=== PATIENT | female | born 1945 | race Caucasian/White ===

== ENCOUNTER 2021-01-05 11:30 | Emergency (ER) | payer MEDICARE, OTHER ==
--- NOTE | 2021-01-05 11:44 | EDM.PDOC ---
ED HPI GENERAL MEDICAL PROBLEM - General Chief Complaint: Upper Extremity Injury/Pain Stated Complaint: LEFT WRIST PAIN, S/P Fall Time Seen by Provider: 01/05/21 11:35 Source of Information: Reports: Patient History Limitations: Reports: No Limitations - History of Present Illness INITIAL COMMENTS - FREE TEXT/NARRATIVE: 75 YO WF PRESENTS TO ER AFTER TRIP AND FALL WHILE WALKING OUTSIDE. PT REPORTS SHE FELL ON AN OUTSTRETCHED HAND TRYING TO BRACE HER FALL. PT ALSO REPORTS LANDING ON HER RIGHT KNEE WHICH HAS BECOME SORE. PT REPORTS SHE'S BEEN ABLE TO AMBULATE WITHOUT DIFFICULTY. PT COMPLAINING OF LEFT WRIST PAIN AND DEFORMITY. PT DENIES ANY OTHER INJURIES- NO HEAD/NECK INJURY. PT DENIES ANY NEUROVASCULAR COMPLAINTS OF NUMBNESS OR MOTOR WEAKNESS. Onset: Today Location: Reports: Upper Extremity, Left, Lower Extremity, Right Quality: Reports: Ache Severity: Moderate Improves with: Reports: Rest Worsens with: Reports: Movement Associated Symptoms: Reports: No Other Symptoms Right Wrist Pain Score (Numeric/FACES): 8 - Related Data Allergies Allergy/AdvReac Type Severity Reaction Status Date / Time ANGEL Inhibitors Allergy Cough Verified 01/05/21 12:07 latex Allergy Rash Verified 01/05/21 12:07 Sulfa (Sulfonamide Allergy Cannot Verified 01/05/21 12:07 Antibiotics) Remember valsartan Allergy Itching Verified 01/05/21 12:07 Home Meds: Home Meds Acetaminophen [Acetaminophen Extra Strength] 1,000 mg PO DAILY PRN 09/16/15 [History] Folic Acid 1 mg PO DAILY 09/16/15 [History] Magnesium Hydroxide [Milk of Magnesia] 30 ml PO ASDIRECTED PRN 09/16/15 [History] Multivitamin [Multivitamins] 1 cap PO DAILY 09/16/15 [History] Piroxicam 20 mg PO DAILY PRN 09/16/15 [History] Venlafaxine [Effexor XR] 150 mg PO DAILY 09/16/15 [History] riTUXimab [Rituxan] 500 mg IV ASDIRECTED 09/16/15 [History] Calcium Carbonate [Calcium] 500 mg PO BEDTIME 04/15/19 [History] Cholecalciferol (Vitamin D3) [Vitamin D3] 1,000 unit PO DAILY 04/15/19 [History] Venlafaxine HCl [Venlafaxine ER] 75 mg PO DAILY 04/15/19 [History] amLODIPine Besylate [Amlodipine Besylate] 10 mg PO DAILY 04/15/19 [History] predniSONE [Prednisone] 5 mg PO DAILY 01/05/21 [History] traMADol [Ultram] 50 mg PO Q6H PRN #10 tab 01/05/21 [Rx] Past Medical History HEENT History: Reports: Impaired Vision Cardiovascular History: Reports: High Cholesterol, Hypertension Gastrointestinal History: Reports: Other (See Below) Other Gastrointestinal History: Malignant neoplasm of rectum. 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 Psychiatric History: Reports: Depression Endocrine/Metabolic History: Reports: Obesity/BMI 30+, Vitamin D Deficiency Immunologic History: Reports: Immunosuppression Oncologic (Cancer) History: Reports: Other (See Below) Other Oncologic History: Rectum Cancer Dermatologic History: Reports: Other (See Below) Other Dermatologic History: Flushing - Past Surgical History GI Surgical History: Reports: Cholecystectomy, Colonoscopy, Other (See Below) Other GI Surgeries/Procedures: Colectomy Social & Family History - Family History Family Medical History: No Pertinent Family History Review of Systems - Review of Systems Review Of Systems: See Below Constitutional: Reports: No Symptoms Eyes: Reports: No Symptoms Ears: Reports: No Symptoms Nose: Reports: No Symptoms Mouth/Throat: Reports: No Symptoms Respiratory: Reports: No Symptoms Cardiovascular: Reports: No Symptoms GI/Abdominal: Reports: No Symptoms Genitourinary: Reports: No Symptoms Musculoskeletal: Reports: Arm Pain Skin: Reports: No Symptoms Neurological: Reports: No Symptoms Psychiatric: Reports: No Symptoms ED EXAM, GENERAL - Physical Exam Exam: See Below Exam Limited By: No Limitations General Appearance: Alert, WD/WN, No Apparent Distress Head: Atraumatic, Normocephalic Neck: Normal Inspection, Supple, Non-Tender, Full Range of Motion Respiratory/Chest: No Respiratory Distress, Lungs Clear, Normal Breath Sounds, No Accessory Muscle Use, Chest Non-Tender Cardiovascular: Normal Peripheral Pulses, Regular Rate, Rhythm, No Edema, No Gallop, No JVD, No Murmur, No Rub GI/Abdominal: Normal Bowel Sounds, Soft, Non-Tender, No Organomegaly, No Distention, No Abnormal Bruit, No Mass Back Exam: Normal Inspection, Full Range of Motion, NT Extremities: Non-Tender, No Pedal Edema, Normal Capillary Refill, Arm Pain (RIGHT DISTAL RADIAL WRIST DEFORMITY), Leg Pain (RIGHT KNEE TENDERNESS- FULL ACTIVE ROM; AMBULATING WITHOUT DIFFICULTY) Neurological: Alert, Oriented, CN II-XII Intact, Normal Cognition, Normal Gait, Normal Reflexes, No Motor/Sensory Deficits Psychiatric: Normal Affect, Normal Mood Skin Exam: Warm, Dry, Intact, Normal Color, No Rash Lymphatic: No Adenopathy ED TRAUMA EXTREMITY PROCEDURES - Splinting Left Upper Extremity Splint Site: left forearm Pre-Procedure NV Status: Normal Post-Procedure NV Status: Normal Splint Material: Fiberglass Splint Design: Sugar Tong Applied & Form Fitted By: Provider Provider Post-Splint Application NV Check: NV Status Normal, Good Position Complications: No Course - Vital Signs Last Recorded V/S: Last Vital Signs Temp 97.0 F 01/05/21 11:59 Pulse 75 01/05/21 11:59 Resp 20 01/05/21 11:59 BP 130/61 01/05/21 11:59 Pulse Ox 97 01/05/21 11:59 - Orders/Labs/Meds Orders: Active Orders 24 hr Category Date Time Status Immobilizer [RC] ASDIRECTED Care 01/05/21 12:51 Ordered Knee 3V Rt [CR] Stat Exams 01/05/21 12:07 Ordered Wrist Comp Min 3V Lt [CR] Stat Exams 01/05/21 11:41 Ordered Meds: Medications Discontinued Medications Generic Name Dose Route Start Last Admin Trade Name Freq PRN Reason Stop Dose Admin Tramadol HCl 50 mg 01/05/21 12:15 01/05/21 12:38 Tramadol 50 Mg Tab PO 01/05/21 12:16 50 mg ONETIME ONE Administration - Radiology Interpretation Free Text/Narrative:: LEFT WRIST- COMPRESSED DISTAL RADIAL FRACTURE WITH ULNAR STYLOID INVOLVEMENT. RIGHT KNEE- NO FX OR DISLOCATION Departure - Departure Time of Disposition: 12:18 Disposition: Home, Self-Care 01 Condition: Good Clinical Impression: Distal radial fracture Qualifiers: Encounter type: initial encounter Fracture type: closed Laterality: left Fracture of ulnar styloid Qualifiers: Encounter type: initial encounter Fracture type: closed Laterality: left Knee contusion Qualifiers: Encounter type: initial encounter Laterality: right Qualified Code(s): S80.01XA - Contusion of right knee, initial encounter - Discharge Information Prescriptions: traMADol [Ultram] 50 mg PO Q6H PRN #10 tab PRN Reason: Pain Instructions: Wrist Fracture Treated With Immobilization, [id number], Ulnar Fracture Referrals: Jovany Solomon MD [Physician] - Forms: ED Department Discharge Sepsis Event Note (ED) - Focused Exam Vital Signs: Vital Signs Temp Pulse Resp BP Pulse Ox 01/05/21 11:59 97.0 F 75 20 130/61 97 - My Orders Last 24 Hours: My Active Orders 01/05/21 11:41 Wrist Comp Min 3V Lt [CR] Stat 01/05/21 12:07 Knee 3V Rt [CR] Stat 01/05/21 12:51 Immobilizer [RC] ASDIRECTED - Assessment/Plan Last 24 Hours: My Active Orders 01/05/21 11:41 Wrist Comp Min 3V Lt [CR] Stat 01/05/21 12:07 Knee 3V Rt [CR] Stat 01/05/21 12:51 Immobilizer [RC] ASDIRECTED Assessment:: 1. LEFT DISTAL RADIAL FRACTURE 2. LEFT ULNAR STYLOID FRACTURE 3. RIGHT KNEE CONTUSION Plan: 1. DISCHARGE HOME 2. APPOINTMENT TODAY WITH DR SOLOMON- [facility] 3:30PM 3. ULTRAM 50MG 1-2 TABLETS EVERY 6 HOURS FOR PAIN NEEDED 4. REST/ICE/IMMOBILIZATION 5. RETURN TO ER FOR WORSENING SYMPTOMS
[2021-01-05 12:04] VITALS: BP 130/61; PULSE 75
[2021-01-05] MEDS ORDERED: traMADol 50 MG Tab PO ONE (12:15)
--- NOTE | 2021-01-05 13:03 | CR ---
[id number] RAD/RAD Knee Right 3V EXAM: RAD Knee Right 3V CLINICAL DATA: TRAUMA COMPARISON: No previous similar exam is available. FINDINGS: An impacted distal left radial diametaphyseal fracture is seen with articular involvement There is suspected to be also an impacted distal left ulna fracture also There are extensive degenerative changes. IMPRESSION: ACUTE DISTAL LEFT RADIAL AND ULNAR FRACTURES Ray Angel MD 01/05/21 [id number] Thank you for allowing us to participate in the care of your patient.
--- NOTE | 2021-01-06 08:07 | CR ---
[id number] RAD/RAD Wrist Left 3V Min EXAM: RAD Wrist Left 3V CLINICAL DATA: TRAUMA COMPARISON: No previous similar exam is available. FINDINGS: An impacted distal left radial diametaphyseal fracture is seen with articular involvement There is suspected to be also an impacted distal left ulna fracture also There are extensive degenerative changes. IMPRESSION: ACUTE DISTAL LEFT RADIAL AND ULNAR FRACTURES Ray Angel MD 01/06/21 [id number] Thank you for allowing us to participate in the care of your patient.
== END 2021-01-05 13:05 | disposition home or self-care (01) ==
LOC: KA.ED 11:30
DX: S52.612A Displaced fracture of left ulna styloid process, initial encounter for closed fracture (principal); S52.592A Other fractures of lower end of left radius, initial encounter for closed fracture; E66.9 Obesity, unspecified; Z88.8 Allergy status to other drugs, medicaments and biological substances; Z91.040 Latex allergy status; Z88.2 Allergy status to sulfonamides; Z68.41 Body mass index [BMI] 40.0-44.9, adult; W18.39XA Other fall on same level, initial encounter
CPT/HCPCS: 29125; 73110-LT; 73562-RT; 99283; 99283-25; A9270-GY

== ENCOUNTER 2022-10-01 08:12 | Emergency (ER) | payer MEDICARE, OTHER ==
[2022-10-01 08:23] VITALS: BP 162/79; PULSE 81
== END 2022-10-01 09:19 | disposition home or self-care (01) ==
LOC: KA.ED 08:12
DX: L29.9 Pruritus, unspecified (principal); I10 Essential (primary) hypertension; E66.9 Obesity, unspecified; Z68.29 Body mass index [BMI] 29.0-29.9, adult; Z86.16 Personal history of COVID-19; Z88.8 Allergy status to other drugs, medicaments and biological substances; Z88.2 Allergy status to sulfonamides; Z91.040 Latex allergy status; Z79.899 Other long term (current) drug therapy
CPT/HCPCS: 99282; 99283

== ENCOUNTER 2022-10-28 05:18 | Emergency (ER) | payer MEDICARE, OTHER ==
[2022-10-28 05:52] LABS: BASOPHILS ABSOLUTE AUTO 0.05 10^3/uL (0.00-0.10); BASOPHILS PERCENT AUTO 0.6 % (0.0-1.0); EOSINOPHILS ABSOLUTE AUTO 0.24 10^3/uL (0.10-0.30); HEMATOCRIT 42.6 % (37.0-47.0); HEMOGLOBIN 14.1 g/dL (12.0-16.0); IMMATURE GRAN ABSOLUTE AUTO 0.01 10^3/uL (0.00-0.50); IMMATURE GRAN PERCENT AUTO 0.1 % (0.0-5.0); LYMPHOCYTES ABSOLUTE AUTO 1.45 10^3/uL (1.00-4.00); LYMPHOCYTES PERCENT AUTO 18.2 % (20.0-40.0); MEAN CORPUSCULAR HEMOGLOBIN 29.7 pg (27.0-31.0); MEAN CORPUSCULAR HGB CONC 33.1 g/dL (32.0-36.0); MEAN CORPUSCULAR VOLUME 89.9 fL (82.0-92.0); MEAN PLATELET VOLUME 9.5 fL (7.4-10.4); MONOCYTES PERCENT AUTO 8.8 % (2.0-8.0); NEUTROPHILS ABSOLUTE AUTO 5.52 10^3/uL (2.50-7.00); NEUTROPHILS PERCENT AUTO 69.3 % (50.0-70.0); PLATELET COUNT,PLT 336 10^3/uL (150-400); RED BLOOD CELL COUNT 4.74 10^6/uL (3.80-5.50); RED CELL DISTRIBUTION WIDTH 12.5 % (11.5-14.5); WHITE BLOOD CELL COUNT,WBC 7.97 10^3/uL (5.00-10.00)
[2022-10-28 06:10] LABS: ANION GAP 8.5 mmol/L (5-15); CALCIUM 8.3 mg/dL (8.7-10.3); CARBON DIOXIDE,CO2 26.1 mmol/L (21.0-32.0); CREATININE 0.71 mg/dL (0.51-1.17); EST CRCL DRUG DOSING (CG) 61.31 mL/min; POTASSIUM,K 3.6 mmol/L (3.5-5.1)
[2022-10-28 08:51] VITALS: BP 153/74; PULSE 73
== END 2022-10-28 06:52 | disposition home or self-care (01) ==
LOC: KA.ED 05:18
DX: R07.89 Other chest pain (principal); I10 Essential (primary) hypertension; E66.9 Obesity, unspecified; Z68.39 Body mass index [BMI] 39.0-39.9, adult; Z86.16 Personal history of COVID-19; Z88.2 Allergy status to sulfonamides; Z88.8 Allergy status to other drugs, medicaments and biological substances; Z91.040 Latex allergy status; Z79.899 Other long term (current) drug therapy
CPT/HCPCS: 36415; 80048; 84484; 85025; 93010; 99284; 99285